=== PATIENT | male | born 1950 | race Caucasian/White ===

== ENCOUNTER → 2023-07-14 10:22 | Outpatient (BNVA) | payer MEDICARE, MEDICAID, SELFPAY | PROVIDERS: Family Provider Physician Assistant Medical; PCP Physician Assistant Medical; Visit Provider Internal Medicine Cardiovascular Disease | DX: I25.10 Atherosclerotic heart disease of native coronary artery without angina pectoris (principal); Z95.1 Presence of aortocoronary bypass graft; E78.2 Mixed hyperlipidemia; Z95.820 Peripheral vascular angioplasty status with implants and grafts; Z87.898 Personal history of other specified conditions | CPT/HCPCS: 99203 ==

== ENCOUNTER 2023-07-22 09:14 | Outpatient (CLI) | payer MEDICARE, MEDICAID, SELFPAY ==
--- NOTE | 2023-07-22 | ECG_ITS ---
[facility] Test Date: 2023-07-22 Pat Name: Marshal Starks Department: Room: Gender: Male Fringing Machine Operator: Paula NixonYandel : 1950 Requested By: Mahad Slaughter Order Number: [id number] Enrique MD: Ed Lemus M.D. Interpretive Statements NAME OF STUDY: LEXISCAN SESTAMIBI STRESS TEST INDICATION: [CAD, CABG, Fatigue] Procedure: At the baseline, the blood pressure was 143/93 mmHg with a heart rate of 70 bpm. The electrocardiogram showed normal sinus rhythm, normal axis with normal ST and T's. The Lexiscan was infused over a period of 20 seconds. A total of 0.4 mg of Lexiscan was infused. The stress phase was continued for a total of 5 minutes. Heart rate was at the end of stress phase was 90 bpm and a blood pressure of 159/82 mmHg. The EKG at the peak infusion revealed normal sinus rhythm with no significant ST-T wave changes. Sestamibi was injected 20 seconds after the Lexiscan infusion. Blood pressure at the end of recovery phase was 152/86 mmHg with a heart rate of 87bpm. Conclusion: 1. Normal EKG response to Lexiscan infusion 2. No Lexiscan induced chest pain or cardiac arrhythmia. 3. Normal blood pressure and heart rate response. 4. Sestamibi/sestamibi perfusion scan pending; see separate report. Electronically Signed On 08-10-2023 9:00:58 CDT by Ed eLmus M.D. [id number]
[2023-07-22 09:32] VITALS: BMI 26.9
--- NOTE | 2023-07-22 09:33 | NMCV_ITS ---
NM sarah perf SPECT r/s* [id number] Raudel Marshal Age: 73 Gender: M : 1950 Exam Date: 07/22/2023 10:13 Ordering Phys: Mahad Slaughter MD ([email or web address]) Technologist: ELHAM Alcaraz Exam Location: [facility] Indications: ASCENDING AORTIC GRAFT STRESS TEST Please see separate stress test report in [facility] for full findings IMAGE PROTOCOL Rest/Stress 1 Lexiscan Day Radiopharmaceutical Dose (mCi) Administration Site Administered by Rest: Tc-99m 11.0 IV ELHAM Carter Sestamibi Stress:Tc-99m 32.6 IV ELHAM Carter Sestamibi Rest: 22-Jul-2023 60 Discovery 630 Stress: 22-Jul-2023 30 Discovery 630 0.4mg Lexiscan. Images obtained in supine and prone position. SPECT RESULTS Technical Quality: Excellent Raw Data Analysis: Normal Image Corrections: No attenuation or motion correction applied Summed Stress Score: 0 Summed Rest Score: 0 Summed Difference Score: 0 PERFUSION FINDINGS SPECT images demonstrate homogeneous tracer distribution throughout the myocardium. FUNCTIONAL RESULTS (calculated via Gated SPECT) Stress Image LV EF (%): 88 Stress EDV (mL):65 TID: 0.92 Stress ESV (mL):8 FUNCTIONAL FINDINGS: There is normal left ventricular systolic function. IMPRESSIONS 1. Normal myocardial perfusion imaging with no evidence of ischemia 2. LV systolic function is normal Ed Lemus MD (Electronically Signed) Final Date: 22 Jul 2023 18:06 S
[2023-07-22] MEDS: regadenoson 0.4 Mg/5 ml Syringe 0.400000000000000022 MG IVP (10:57)
[2023-07-22 11:01] VITALS: BP 152/86; PULSE 87
== END 2023-07-22 09:15 | disposition home or self-care (01) ==
LOC: CDL 09:15
PROVIDERS: PCP Nurse Practitioner Family; Visit Provider Internal Medicine Cardiovascular Disease
DX: I25.10 Atherosclerotic heart disease of native coronary artery without angina pectoris (principal)
CPT/HCPCS: 36415; 78452; 93017; 96374; A9500; J2785

== ENCOUNTER → 2023-07-30 10:20 | Outpatient (BNVA) | payer MEDICARE, MEDICAID, SELFPAY | PROVIDERS: PCP Nurse Practitioner Family; Visit Provider Student in an Organized Health Care Education/Training Program | DX: M17.11 Unilateral primary osteoarthritis, right knee | CPT/HCPCS: 20610; 73560; 73565; 99204; J3301 ==

== ENCOUNTER → 2023-10-28 09:09 | Outpatient (BNVA) | payer MEDICARE, MEDICAID, SELFPAY | PROVIDERS: PCP Nurse Practitioner Family; Visit Provider Nurse Practitioner Family | DX: I25.10 Atherosclerotic heart disease of native coronary artery without angina pectoris (principal); Z95.1 Presence of aortocoronary bypass graft | CPT/HCPCS: 36415; 81003; 81015; 82652; 84443; 86618; 86666; 86757; 99214 ==

== ENCOUNTER → 2023-11-09 10:55 | Outpatient (BNVA) | payer MEDICARE, MEDICAID, SELFPAY | PROVIDERS: PCP Nurse Practitioner Family; Visit Provider Student in an Organized Health Care Education/Training Program | DX: M17.11 Unilateral primary osteoarthritis, right knee (principal) | CPT/HCPCS: 20610; 99213; J3301 ==

== ENCOUNTER → 2024-02-10 08:10 | Outpatient (BNVA) | payer MEDICARE, MEDICAID, SELFPAY | PROVIDERS: PCP Nurse Practitioner Family; Visit Provider Student in an Organized Health Care Education/Training Program | DX: M17.11 Unilateral primary osteoarthritis, right knee (principal) | CPT/HCPCS: 20610; 99213; J3301 ==

== ENCOUNTER → 2024-05-01 12:51 | Outpatient (BNVA) | payer MEDICARE, MEDICAID, SELFPAY | PROVIDERS: PCP Nurse Practitioner Family; Visit Provider Internal Medicine Cardiovascular Disease | DX: I25.10 Atherosclerotic heart disease of native coronary artery without angina pectoris (principal); Z95.1 Presence of aortocoronary bypass graft; R53.83 Other fatigue; I65.29 Occlusion and stenosis of unspecified carotid artery; Z86.73 Personal history of transient ischemic attack (TIA), and cerebral infarction without residual deficits; Z87.891 Personal history of nicotine dependence | CPT/HCPCS: 99214 ==

== ENCOUNTER → 2024-05-16 08:45 | Outpatient (BNVA) | payer MEDICARE, MEDICAID, SELFPAY | PROVIDERS: PCP Nurse Practitioner Family; Visit Provider Student in an Organized Health Care Education/Training Program | DX: M17.11 Unilateral primary osteoarthritis, right knee (principal) | CPT/HCPCS: 20610; 99213; J3301 ==

== ENCOUNTER → 2024-08-16 09:25 | Outpatient (BNVA) | payer MEDICARE, MEDICAID, SELFPAY | PROVIDERS: PCP Nurse Practitioner Family; Visit Provider Student in an Organized Health Care Education/Training Program | DX: M17.11 Unilateral primary osteoarthritis, right knee (principal) | CPT/HCPCS: 99213 ==

== ENCOUNTER 2024-09-10 23:29 | Emergency (ER) | payer OTHER, SELFPAY ==
[2024-09-10 23:38] VITALS: BP 127/71; PULSE 124; RESP 18; TEMP 37.1; O2SAT 97; BMI 26.6
--- NOTE | 2024-09-10 23:42 | ECG_ITS ---
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 Measurements Intervals [place] Rate: 124 P: 49 MA: 128 QRS: 109 QRSD: 99 T: 53 QT: 290 QTc: 417 Interpretive Statements SINUS TACHYCARDIA RIGHT AXIS DEVIATION [QRS AXIS > 100] Compared to ECG 10/26/2015 12:29:06 Right-axis deviation now present Sinus rhythm no longer present Electronically Signed On 09-12-2024 17:29:11 CDT by Ed Lemus M.D. [id number]
--- NOTE | 2024-09-10 23:52 | XRR_ITS ---
PROCEDURE INFORMATION: Exam: XR Chest Exam date and time: 09/11/2024 12:23 AM Age: 74 years old Clinical indication: Fever and shortness of breath; C/O SOB with fever TECHNIQUE: Imaging protocol: Radiologic exam of the chest. Views: 1 view. COMPARISON: No relevant prior studies available. FINDINGS: Lungs: No large focal consolidation. Pleural spaces: No large pleural effusion. No distinct pneumothorax. Heart/Mediastinum: Cardiomediastinal silhouette is midline and normal in size. Bones/joints: Postsurgical changes of prior median sternotomy. XR/XR chest 1V portable [id number] IMPRESSION: No acute cardiopulmonary findings.
[2024-09-11 00:34] VITALS: BP 122/91; PULSE 124; RESP 16; O2SAT 97
--- NOTE | 2024-09-11 00:34 | ED_ITS ---
HPI - SOB/Dyspnea 2 General: Chief Complaint: Shortness of Breath/Dyspnea Stated Complaint: SOB\Fever Time Seen by Provider: 09/11/24 00:24 History of Present Illness: HPI Narrative: 74-year-old male with history of coronar y disease. He presents with shortness of breath, minimal cough, pain in his mid back, somewhat worse with breathing, and temperature. Symptoms seem to start tonight. His heart rate has been fast. Denies leg swelling. No sputum production. No long car trips or road trips. No history of DVT or PE. Related Data Home Medications ?Medication ?Instructions ?Recorded ?Confirmed esomeprazole magnesium 40 mg mg PO PRN 05/01/24 capsule,delayed release ibuprofen 800 mg tablet 800 mg PO BID PRN 05/01/24 0 08/26/24 Previous Rx's ?Medication ?Instructions ?Recorded prednisone 20 mg tablet 40 mg (2 x 20 mg) PO DAILY # 20 tabs 08/26/24 hydrocodone 5 mg-acetaminophen 325 1 tab PO Q4H PRN pa in 2 days #8 09/11/24 mg tablet tabs Allergies Allergy/AdvReac Type Severity Reaction Status Date / Time azithromycin (From Zithromax) Allergy Mild sick Verified 09/10/24 23:42 [facility] ED 2 PFSH: Medical History ASHD (arteriosclerotic heart disease) Vitamin D deficiency H/O chest pain GERD (gastroesophageal reflux disease) Mixed hyperlipidemia Surgical History S/P angioplasty with stent S/P CABG x 2 Social History Smoking and tobacco/nicotine status: former use of tobacco/nicotine Alcohol intake: never Substance/Drug Use: never Physical Exam 2 Const: COMMON NORMALS: no acute distress GENERAL APPEARANCE: cooperative; not ill appearing and not frail appearing HENMT: COMMON NORMALS: normocephalic, atraumatic and Normal external nose present HEAD & SCALP: normocephalic and atraumatic FACE & SINUS: normal facial exam and face symmetric NOSE: Normal external nose present Eye: COMMON NORMALS: Equal, round and reactive pupils present and EOMs intact bilaterally PUPIL: Yes Equal, round and reactive pupils present Neck/C-Spine: GENERAL: Yes trachea midline Chest: CHEST: Yes Symmetrical chest wall rise Resp: COMMON NORMALS: normal respiratory effort, No retractions, No use of accessory muscles and clear to auscultation bilaterally AUSCULTATION: clear to auscultation bilaterally Cardio: COMMON NORMALS: regular rhythm RATE: tachycardic RHYTHM: regular rhythm GI: COMMON NORMALS: Normal to inspection, nondistended, normoactive bowel sounds present Extremity: COMMON NORMALS: no pedal edema Neuro: WILDER COMA SCALE: document GCS findings Wilder coma scale eye opening: Spontaneous Healy coma scale verbal response: Orientated Healy coma scale motor response: Obey commands Healy coma scale total score: 15 S ENSORY EXAM: Yes extremities (intact) Psych: COMMON NORMALS: speech normal SPEECH: Yes normal speech Skin: COMMON NORMALS: no rashes or lesions noted GENERAL SKIN EXAM: no rashes or lesions noted Course 2 Vital Signs: Vital signs: Vital Signs Temperature 98.8 F 09/10/24 23:38 Pulse Rate 89 09/11/24 03:05 Respiratory Rate 16 09/11/24 03:05 Blood Pressure 113/65 09/11/24 03:05 Pulse Oximetry 92 09/11/24 03:05 Oxygen Delivery Me thod Room Air 09/11/24 03:05 MDM - SOB/Dyspnea Medical Decision Making Tachycardic patient with somewhat pleuritic back/chest pain and minimal cough. Tachycardia is somewhat concerning. CTA of the chest has been ordered. White blood cell count is 13, hemoglobin is 17. He does appear somewhat hemoconcentrated. BUN is 27, creatinine 0.8. Chest x-ray is nonacute. No acute ST-T wave changes on EKG. First troponin is 10. 2-hour troponin is stable. CTA of the chest shows no PE, no aortic dissection, no infiltrates, no acute findings. Gallbladder ultrasound, done because of presence of partially imaged stones on CT chest, reveals 3 gallstones with no significant signs of cholecystitis or choledocholithiasis. His symptoms are improved. His heart rate is below 100. He is encouraged to drink oral liquids. Short course of pain medication for ongoing pain. He was prescribed hydrocodone for shingles a couple weeks ago, tachycardia from withdrawal of pain medication is in the differential. He is encouraged to use pain medication very sparingly because of this and taper off slowly. To return for any problems. Lab Data 09/10/24 00:30 09/10/24 00:30 Labs/Radiology: Radiology Impressions Chest X-Ray 09/10/24 23:52 IMPRESSION: No acute cardiopulmonary findings. Chest CTA 09/11/24 01:24 IMPRESSION: 1. No acute pathologic findings in the chest. 2. Questionable cholelithiasis, partially imaged. Gallbladder Ultrasound 09/11/24 02:35 IMPRESSION: Echogenic gallstones in the dependent gallbladder, measuring up to at least 2.1 cm. No significant gallbladder wall thickening. No pericholecystic fluid. Laboratory Results WBC 13.02 10^3/uL (3.29-11.43) H 09/10/24 00:30 RBC 5.53 10^6/uL (3.85-5.65) 09/10/24 00:30 Hgb 17.40 g/dL (11.27-16.99) H 09/10/24 00:30 Hct 51.4 % (37-53) 09/10/24 00:30 MCV 92.9 fl (82-101) 09/10/24 00:30 MCH 31.5 pg (27-33) 09/10/24 00:30 MCHC 33.9 g/dL (30-55) 09/10/24 00:30 RDW 13.0 % (12.1-15.1) 09/10/24 00:30 Plt Count 179 10^3/cmm (157-399) 09/10/24 00:30 MPV 8.9 fL (7.4-10.4) 09/10/24 00:30 Neut % (Auto) 74.6 % 09/10/24 00:30 Lymph % (Auto) 13.4 % 09/10/24 00:30 Morton % (Auto) 8.3 % 09/10/24 00:30 Eos % (Auto) 2.2 % 09/10/24 00:30 Baso % (Auto) 0.5 % 09/10/24 00:30 Neut # (Auto) 9.73 10^3/uL (1.8-7.7) H 09/10/24 00:30 Lymph # (Auto) 1.7 10^3/uL (0.8-4.8) 09/10/24 00:30 Morton # (Auto) 1.1 10^3/uL (0.2-0.9) H 09/10/24 00:30 Eos # (Auto) 0.3 10^3/uL (0.0-0.8) 09/10/24 00:30 Baso # (Auto) 0.1 10^3/uL (0.0-0.1) 09/10/24 00:30 Nucleated RBC % (auto) 0 % 09/10/24 00: Nucleated RBCs # 0.0 /100WBC 09/10/24 00:30 D-Dimer 0.35 ug/mLFEU (0-0.59) 09/11/24 00:30 Sodium 137 mmol/L (136-145) 09/10/24 00:30 Potassium 4.5 mmol/L (3.5-5.1) 09/10/24 00:30 Chloride 101 mmol/L (98-107) 09/10/24 00: Carbon Dioxide 20 mmol/L (22-29) L 09/10/24 00:30 Anion Gap 20.5 (5-19) H 09/10/24 00:30 BUN 27 mg/dL (8-23) H 09/10/24 00:30 Creatinine 0.8 mg/dL (0.7-1.2) 09/10/24 00:30 GFR Calculation Not Reportable 09/10/24 00:30 Glucose 117 mg/dL (65-115) H 09/10/24 00:30 Calculated Osmolality 290 mOsm/kg (285-295) 09/10/24 00:30 Lactic Acid 2.2 mmol/L (0.5-2.2) 09/10/24 00:30 Lactic Acid (Sepsis) 2.2 mmol/L (0.5-2.2) 09/11/24 03:39 Calcium 9.2 mg/dL (8.5-10.5) 09/10/24 00:30 Total Bilirubin 0.6 mg/dL (0.15-1.2) 09/10/24 00:30 AST 13 U/L (0-40) 09/10/24 00:30 ALT 27 U/L (0-41) 09/10/24 00:30 Alkaline Phosphatase 65 U/L (40-130) 09/10/24 00:30 Troponin T Baseline 10 ng/L (0-15) 09/10/24 00:30 Troponin T 120 Minute 9.81 ng/L (0-15) 09/11/24 02:45 Delta Troponin T -0.19 ABS# (0-10) L 09/11/24 02:45 NT-Pro-B Natriuret Pep 309 pg/mL (0-125) H 09/10/24 00:30 Total Protein 6.6 g/dL (6.6-8.7) 09/10/24 00:30 Albumin 4.2 g/dL (3.5-5.2) 09/10/24 00:30 Globulin 2.4 g/dL (1.3-4.6) 09/10/24 00:30 Urine Color Yellow (Yellow) 09/11/24 04:02 Urine Appearance Clear (CLEAR) 09/11/24 04:02 Urine pH 5.5 (5-7) 09/11/24 04:02 Ur Specific [place] >= 1.099 (1.005-1.030) H 09/11/24 04:02 Urine Protein 1+ (Negative) A 09/11/24 04:02 Urine Glucose (UA) Negative (Normal) 09/11/24 04:02 Urine Ketones Negative (Negative) 09/11/24 04:02 Urine Blood Negative (Negative) 09/11/24 04:02 Urine Nitrate Negative (Negative) 09/11/24 04:02 Urine Bilirubin Negative (Negative) 09/11/24 04:02 Urine Urobilinogen 1.0 mg/dL (Negative) 09/11/24 04:02 Ur Leukocyte Esterase Negative (Negative) 09/11/24 04:02 Urine RBC 5-10 /hpf (0-2) H 09/11/24 04:02 Urine WBC 0-4 /hpf (0-5) H 09/11/24 04:02 Ur Squamous Epith Cells 0-4 /hpf (0-5) H 09/11/24 04:02 Amorphous Sediment Not Reportable 09/11/24 04:02 Urine Bacteria None /hpf (NONE) 09/11/24 04:02 Hyaline Casts 0-4 /lpf H 09/11/24 04:02 All radiology interpretation(s) finalized by discharge Discharge Plan Discharge Patient Disposition: Home Clinical Impression: Acute thoracic back pain Condition: Stable Prescriptions: Continued hydrocodone-acetaminophen 5-325 mg tablet 1 tab PO Q4H PRN (Reason: pain) 2 Days Qty: 8 0RF No Action esomeprazole magnesium 40 mg capsule,delayed release(DR/EC) PO PRN prednisone 20 mg tablet 40 mg PO DAILY Qty: 20 0RF Rx Instructions: 40mg (2 tabs) poqd for 4d then, 30mg (1.5tabs) poqd for 4d, 20mg (1 tab) poqd for 4d, then 10mg (0.5 tab) poqd for 4d ibuprofen 800 mg tablet 800 mg PO BID PRN Discharge Orders: Discharge ED (Routine); Ordered 09/11/24 Ordered By: Max Mckinley Referrals: Shilpa Macedo FNP [Primary Care Provider, [facility]] - 1-3 days Patient Instructions: Back Pain (ED), Opioid Safety, Pain Management Activity Restrictions/Additional Instructions: Use pain medication sparingly for this. Some of the increased heart rate you are experiencing can be worsened by withdrawing from pain medication. You may take ibuprofen instead of the medication prescribed. Return for fever, vomiting, development of chest pain or shortness of breath, any other concerning symptoms. Stay out of the heat for the next 48 hours. Drink plenty of clear fluids, especially for the next 48 hours. Call your doctor later this morning for an outpatient follow-up. 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
[2024-09-11 00:46] LABS: Basophils # 0.1 10^3/uL (0.0-0.1); Basophils % 0.5 %; Eosinophils # 0.3 10^3/uL (0.0-0.8); Eosinophils % 2.2 %; Hematocrit 51.4 % (37-53); Lymphocytes # 1.7 10^3/uL (0.8-4.8); Lymphocytes % 13.4 %; Mean Corpuscular HGB Conc 33.9 g/dL (30-55); Mean Corpuscular Hemoglobin 31.5 pg (27-33); Mean Corpuscular Volume 92.9 fl (82-101); Mean Platelet Volume 8.9 fL (7.4-10.4); Monocytes # 1.1 10^3/uL (0.2-0.9); Monocytes % 8.3 %; Neutrophils # 9.73 10^3/uL (1.8-7.7); Neutrophils % 74.6 %; Nucleated Red Blood Cells % 0 %; Platelet Count 179 10^3/cmm (157-399); Red Blood Count 5.53 10^6/uL (3.85-5.65); White Blood Count 13.02 10^3/uL (3.29-11.43)
[2024-09-11 01:02] LABS: D Dimer 0.35 ug/mLFEU (0-0.59)
[2024-09-11 01:05] LABS: Troponin(5th) Baseline 10 ng/L (0-15)
[2024-09-11 01:06] LABS: Lactic Sepsis W/Reflex 2.2 mmol/L (0.5-2.2)
[2024-09-11 01:16] LABS: Alanine Aminotransferase 27 U/L (0-41); Albumin Level 4.2 g/dL (3.5-5.2); Alkaline Phosphatase 65 U/L (40-130); Aspartate Amino Transferase 13 U/L (0-40); Blood Urea Nitrogen 27 mg/dL (8-23); Calcium 9.2 mg/dL (8.5-10.5); Carbon Dioxide 20 mmol/L (22-29); Chloride 101 mmol/L (98-107); Creatinine Clr Calc Pharmacy 88.6347; Globulin 2.4 g/dL (1.3-4.6); Glucose 117 mg/dL (65-115); NT Pro B Type Natriuretic Pept 309 pg/mL (0-125); Osmolality Calculated 290 mOsm/kg (285-295); Sodium 137 mmol/L (136-145); Total Bilirubin 0.6 mg/dL (0.15-1.2); Total Protein 6.6 g/dL (6.6-8.7)
[2024-09-11 01:18] LABS: Anion Gap 20.5 (5-19); Potassium 4.5 mmol/L (3.5-5.1)
--- NOTE | 2024-09-11 01:24 | CTR_ITS ---
PROCEDURE INFORMATION: Exam: CTA Chest With Contrast Exam date and time: 09/11/2024 2:01 AM Age: 74 years old Clinical indication: Shortness of breath; Radiating; Prior surgery; Surgery date: 6+ months; Surgery type: Cabg. Coronary stent; Chest and upper back pain with SOB. ; Additional info: Chest pain back pain TECHNIQUE: Imaging protocol: Computed tomographic angiography of the chest with contrast. Exam focused on the arteries. 3D rendering (Not supervised by radiologist): MIP and/or 3D reconstructed images were created by the technologist. Radiation optimization: All CT scans at this facility use at least one of these dose optimization techniques: automated exposure control; mA and/or kV adjustment per patient size (includes targeted exams where dose is matched to clinical indication); or iterative reconstruction. Contrast material: OMNI 350; Contrast volume: 61 ml; Contrast route: INTRAVENOUS (IV); COMPARISON: CR (CHEST, ) 09/11/2024 12:23 AM RADIATION DOSE METRICS: Total DLP (mGy-cm): 324.08 FINDINGS: Pulmonary arteries: No evidence of pulmonary artery emboli. Aorta: Mild scattered calcific atheromatous disease of the thoracic aorta. Thyroid: Thyroid is normal. Lungs: Minimal compressive atelectasis. No focal consolidation. Pleural spaces: No pleural effusion. No pneumothorax. Heart: Heart is normal in size. No pericardial effusion. Lymph nodes: No distinct pathologically enlarged lymphadenopathy. Gallbladder and biliary ducts: Questionable cholelithiasis, partially imaged. Bones/joints: Postsurgical changes of prior median sternotomy. No acute osseous findings. Soft tissues: Visualized superficial soft tissues are within normal limits. CT/CT angio chest PE protcl [id number] IMPRESSION: 1. No acute pathologic findings in the chest. 2. Questionable cholelithiasis, partially imaged.
[2024-09-11 01:37] LABS: Reflex Lactate Order REFLEX LACTIC ORDERD
[2024-09-11] MEDS: metoprolol tartrate 1 mg/1 mL SDV 5 mL 2.5 MG IVP (01:46)
[2024-09-11] MEDS: morphine 4 mg/mL SDV 1 mL IVP (01:52)
[2024-09-11] MEDS: ketorolac 30 mg/mL INJ 15 MG IVP (01:52)
[2024-09-11] MEDS: ondansetron 2 mg/ML SDV 2 mL 4 MG IVP (01:52)
--- NOTE | 2024-09-11 01:53 | ECG_ITS ---
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 Measurements Intervals [place] Rate: 88 P: 26 [place]: 139 QRS: 71 QRSD: 86 T: 111 QT: 335 QTc: 406 Interpretive Statements SINUS RHYTHM POSSIBLE LEFT ATRIAL ENLARGEMENT [-0.1mV P-WAVE IN V1/V2] NONSPECIFIC ST & T-WAVE ABNORMALITY Compared to ECG 09/10/2024 23:46:48 T-wave abnormality now present Sinus tachycardia no longer present Right-axis deviation no longer present Electronically Signed On 09-12-2024 17:51:38 CDT by Ed Lemus M.D. [email or web address] [id number]
[2024-09-11 02:00] VITALS: BP 169/95; PULSE 122; RESP 16; O2SAT 94
[2024-09-11] MEDS: iohexol 350 mg/mL 500 mL Btl (per mL) IV (02:02)
--- NOTE | 2024-09-11 02:35 | USR_ITS ---
PROCEDURE INFORMATION: Exam: US Abdomen, Limited; Right Upper Quadrant Exam date and time: 09/11/2024 3:03 AM Age: 74 years old Clinical indication: Abdominal pain; Additional info: Epigastric pain back pain TECHNIQUE: Imaging protocol: Real time ultrasound of the abdomen with image documentation. Limited exam focused on the right upper quadrant. COMPARISON: CT angio chest PE protcl [id number] 09/11/2024 2:01 AM FINDINGS: Liver: Visualized liver is normal in appearance. Gallbladder: Echogenic gallstones in the dependent gallbladder, measuring up to at least 2.1 cm. No significant gallbladder wall thickening. No pericholecystic fluid. Biliary ducts: No evidence of biliary ductal dilation. Pancreas: Pancreas is poorly visualized. Right kidney: Right kidney is normal in appearance. No hydronephrosis. No evidence of renal stones. Aorta: Partially imaged aorta is normal in appearance. US/US gall bladder [id number] IMPRESSION: Echogenic gallstones in the dependent gallbladder, measuring up to at least 2.1 cm. No significant gallbladder wall thickening. No pericholecystic fluid.
[2024-09-11 03:05] VITALS: BP 113/65; PULSE 89; RESP 16; O2SAT 92
[2024-09-11 03:11] LABS: Troponin 5 2HR 9.81 ng/L (0-15)
[2024-09-11 03:30] LABS: Troponin 5 2HR Delta -0.19 ABS# (0-10)
[2024-09-11 04:07] LABS: Bilirubin Urine Negative (Negative); Blood Urine Negative (Negative); Glucose Urine UA Negative (Normal); Ketones Urine Negative (Negative); Leukocyte Esterase Urine Negative (Negative); Nitrate Urine Negative (Negative); Protein Urine 1+ (Negative); Urine Appearance Clear (CLEAR); Urine Color Yellow (Yellow); pH Urine 5.5 (5-7)
[2024-09-11 04:24] LABS: Lactic Acid level (Lactate) 2.2 mmol/L (0.5-2.2)
[2024-09-11 04:33] LABS: Specific Gravity, Urine >= 1.099 (1.005-1.030)
[2024-09-11 04:34] LABS: Add Urine Microscopic? YES; Hyaline Casts Urine 0-4 /lpf; Squamous Epithelial Cell Urine 0-4 /hpf (0-5); UA Slide Review UA Slide Review Perf; WBC Urine 0-4 /hpf (0-5)
[2024-09-11] MEDS: oxyCODONE-APAP 5-325 mg Tablet 2 TAB PO (04:46)
[2024-09-11 04:54] VITALS: BP 112/77; PULSE 93; RESP 16; O2SAT 95
== END 2024-09-11 04:55 | disposition home or self-care (01) ==
PROVIDERS: Emergency Provider Emergency Medicine; PCP Nurse Practitioner Family
DX: M54.6 Pain in thoracic spine (principal); Z87.891 Personal history of nicotine dependence; Z95.1 Presence of aortocoronary bypass graft; E78.2 Mixed hyperlipidemia
CPT/HCPCS: 36415; 71045; 71275; 76705; 80053; 81001; 83605; 83880; 84484; 85025; 85378; 87040; 93005; 96374; 96375; 99285; J1885; J2270; J2405; J3490; J9999

== ENCOUNTER 2024-09-15 22:15 | Emergency (ER) | payer OTHER, SELFPAY ==
--- OUTSIDE RECORDS SUMMARY | 2024-09-13 15:40 | XMS_ITS | Encounter Summary ---
Author Organization [facility] Address 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 Hairspring Studder Name Role Phone Laquita Lerner MD Primary Care Provider Reason for Visit * Reason Comments ER Follow Up Anxiety Encounter Details Date Type Department Care Team (Late st Contact Info) Description 09/13/2024 3:40 PM CDT Office Visit [facility] Medicine [address] [address] Shilpa Macedo FNP [address] [place] [address] Vesicular rash (Primary Dx); Rash and nonspecific skin eruption; Prediabetes Social History Tobacco Use Types Packs/Day Years Used Date Smoking Tobacco: Former Cigarettes Smokeless Tobacco: Former Chew Tobacco Cessation:Counseling Given: No Alcohol Use Standard Drinks/Week Comments No 0 (1 standard drink = 0.6 oz pur e alcohol) Financial Resource Strain Answer Date R ecorded How hard is it for you to pa y for the very basics like food, housing, medical care, and heating? Not hard at all 02/19/2022 Food Insecurity Answer Date Recorded In the past 12 months, have you worried that your food would run out before you had money to buy more? Never true 02/19/2022 In the past 12 months, did y ou run out of food and didn't have money to buy more? Never true 02/19/2022 Transportation Needs Answer Date Record ed In the past 12 months, has l ack of transportation kept you from medical appointments or from getting medications? No 02/19/2022 Lack of Transportation (Non-Medical) Not on file 02/19/2022 Feeling Safe Answer Date Recorded Are you in a relationship wi th someone who hurts you emotionally and/or physically? 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 Gender Identity Not on file Sexual Orientation Not on file documented as of this encounter Last Filed Vital Signs Vital Sign Reading Time Taken Comments Blood Pressure 112/84 09/13/2024 3:42 PM CDT Pulse 119 09/13/2024 3:42 PM CDT Temperature 37.7 C (99.9 F) 09/13/2024 3:42 PM CDT Respiratory Rate 20 09/13/2024 3:42 PM CDT Oxygen Saturation 96% 09/13/2024 3:42 PM CDT Inhaled Oxygen Concentration - - Weight 78.7 kg (173 lb 9.6 oz) 09/13/2024 3:42 P M CDT Height 175.3 cm (5' 9 ) 09/13/2024 3:42 PM CDT Body Mass Index 25.64 09/13/2024 3:42 PM CDT documented in this encounter Plan of Treatment Upcoming Encounters Date Type Department Care Team (Late st Contact Info) Description 09/20/2024 10:00 AM CDT Office Visit [facility] Medicine [place] [address] [place] [phone] Shilpa Macedo FNP [address] [facility] [place] [address] Pending Results Name Type Priority Associated Diagnoses Date /Time TICK-BORNE DISEASE AB PANEL W/REFLEX Lab Routine Vesicular rash Rash and nonspecific skin eruption 09/13/2024 4:40 PM CDT BEN MTN SPOTTED FEVER IGG/IGM Lab Routine Vesicular rash Rash and nonspecific skin eruption 09/13/2024 4:40 PM CDT Scheduled Orders Name Type Priority Associated Diagnoses Orde r Schedule TICK-BORNE DISEASE AB PANEL W/REFLEX Lab Routine Vesicular rash Rash and nonspecific skin eruption Expected: 09/13/2024, Expires: 09/13/2025 BEN MTN SPOTTED FEVER IGG/IGM Lab Routine Vesicular rash Rash and nonspecific skin eruption Expected: 09/13/2024, Expires: 09/13/2025 documented as of this encounter Procedures Procedure Name Priority Date/Time Associated Diagnosis Comments MICROALBUMIN/CREATI NINE RATIO, RANDOM UR Routine 09/13/2024 4:42 PM CDT Prediabetes documented in this encounter Results * MICROALBUMIN/CREATININE RATIO, RANDOM UR (09/13/2024 4:42 PM CDT) CREATININE, URINE 155 20 - 320 mg/dL [facility] ALBUMIN, URINE 1.3 See Note: mg/dL [facility] Comment: Reference Range: Reference Range Not established ALB/CREAT RATIO, URINE 8 <30 mg/g creat [facility] Comment: The ADA defines abnormalities in albumin excretion as follows: Albuminuria Category Result (mg/g creatinine) Normal to Mildly increased <30 Moderately increased 30-299 Severely increased > OR = 300 The ADA recommends that at least two of three specimens collected within a 3-6 month period be abnormal before considering a patient to be within a diagnostic category. Test Performed at: [facility] [address] [place] [address] Jono Funez MD Urine URINE SPECIMEN OBTAINED BY CLEAN CATCH PROCEDURE / Unknown 09/13/2024 4:42 PM CDT 09/15/2024 3:53 AM CDT us Shilpa REECE URINE ORDERABLES Final Result [facility] [phone] [facility] [address] [place] [address] documented in this encounter Visit Diagnoses Diagnosis Vesicular rash- Primary Rash and other nonspecific skin eruption Rash and nonspecific skin eruption Rash and other nonspecific skin eruption Prediabetes Other abnormal glucose documented in this encounter Care Teams Hairspring Studder Relationship Specialty Start Date End Date Laquita Lerner MD [address] [address] PCP - General Family Practice 05/12/23 documented as of this encounter
--- OUTSIDE RECORDS SUMMARY | 2024-09-15 22:21 | XMS_ITS | Clinical Summary ---
Author Organization [facility] [place] Address [address] [place] [address] Care Team Providers Care Database Reporting Consultant Name Role Phone Laquita Lerner MD Primary Care Provider Allergies Active Allergy Reactions Criticality Noted Date Comments Azithromycin Abdominal Pain Low 05/13/2018 Medications esomeprazole (NexIUM) 40 mg Capsule, Delayed Release(E.C.)Ind ications:Gastroe sophageal reflux disease without esophagitis TAKE 1 CAPSULE(40 MG) BY MOUTH DAILY 100 Capsule 5 Active ibuprofen (MOTRIN) 800 mg tabletIndication s:Acute pain of left shoulder Take 1 Tablet (800 mg) by mouth every 6 hours as needed for Pain, Mild. 270 Tablet 2 5 Active HYDROcodone-acet aminophen (NORCO) 5-325 mg tablet Take 1 Tablet by mouth every 4 hours as needed for Pain. 5 Active doxycycline hyclate (VIBRAMYCIN) 100 mg capsuleIndicatio ns:Vesicular rash,Rash and nonspecific skin eruption Take 1 Capsule (100 mg) by mouth 2 times daily for 10 days. 20 Capsule 5 09/24/19 25 Active gabapentin (NEURONTIN) 100 mg capsuleIndicatio ns:Vesicular rash,Rash and nonspecific skin eruption Take 1 Capsule (100 mg) by mouth nightly as needed for Pain or Other (See Comment) (anxiety). 30 Capsule 5 Active predniSONE (DELTASONE) 20 mg tablet Take 2 Tablets (40 mg) by mouth daily for 5 days. 10 Tablet 5 09/10/19 25 Active Problems Problem Noted Date Diagnosed Date Other chest pain 08/24/2024 Prediabetes 02/19/2022 TIFFANIE (generalized anxiety disorder) 09/30/2017 Gastroesophageal reflux disease without esophagi tis 09/30/2017 Atherosclerosis of coronary artery bypass graft 03/12/2016 Resolved Problems Problem Noted Date Diagnosed Date Resolved Date Headache 03/12/2016 09/30/2017 Neck pain 03/12/2016 09/30/2017 Encounters Date Type Department Care Team Description 09/14/2024 Orders Only [address] [address] Provider, Abstract 09/13/2024 3:40 PM CDT Office Visit [address] [phone] Shilpa Macedo FNP Vesicular rash (Primary Dx); Rash and nonspecific skin eruption; Prediabetes 09/12/2024 Telephone [facility] [address] [facility] [address] [place] [phone] Laquita Lerner MD Requesting Sooner Appointment; Information 09/04/2024 External Device Data Initial Department [address] [place] [address] Dr LO: [place] [address] [facility], 09/04/2024 Orders Only [address] [phone] Shilpa Macedo FNP 08/29/2024 External Device Data [facility] Provider, Abstract 08/29/2024 External Device Data [facility] Provider, Abstract 08/29/2024 External Device Data [place] Provider, Abstract 08/24/2024 11:43 AM CDT - 08/24/2024 12:58 PM CDT Emergency [facility] Emergency Medicine [address] [facility] [address] [place] [address] Kevon Steiner MD Other chest pain (Primary Dx) Discharge Disposition: Home or Self Care 08/24/2024 Travel 08/15/2024 External Device Data [place] Provider, Abstract 08/15/2024 External Device Data [facility] Provider, Abstract 08/11/2024 External Device Data Initial Department [address] [facility] [address] LO: [place] [address] [facility] 08/10/2024 External Device Data [facility] Provider, Abstract 08/01/2024 External Device Data [facility] Provider, Abstract 08/01/2024 External Device Data [place] Provider, Abstract 07/25/2024 External Device Data [place] Provider, Abstract 07/04/2024 External Device Data [place] Provider, Abstract 06/20/2024 External Device Data [facility] Provider, Abstract from Last 3 Months Social History Tobacco Use Types Packs/Day Years [...] on file 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 Gender Identity Not on file Sexual Orientation Not on file Last Filed Vital Signs Vital Sign Reading Time Taken Comments Blood Pressure 112/84 09/13/2024 3:42 PM CDT Pulse 119 09/13/2024 3:42 PM CDT Temperature 37.7 C (99.9 F) 09/13/2024 3:42 PM CDT Respiratory Rate 20 09/13/2024 3:42 PM CDT Oxygen Saturation 96% 09/13/2024 3:42 PM CDT Inhaled Oxygen Concentration - - Weight 78.7 kg (173 lb 9.6 oz) 09/13/2024 3:42 PM CDT Height 175.3 cm (5' 9 ) 09/13/2024 3:42 PM CDT Body Mass Index 25.64 09/13/2024 3:42 PM CDT Plan of Treatment Upcoming Encounters Date Type Department Care Team (Late st Contact Info) Description 09/20/2024 10:00 AM CDT Office Visit [facility] Medicine [place] [address] [place] [address] [place] [address] [place] [phone] Shilpa Macedo FNP [address] [facility] [place] [address] Health Maintenance Due Date Last Done Comments FIT/ DNA Q 3 YEARS (AUTO ORDER) 1970 FIT/FOBT Q 1 YEAR (AUTO ORDER) 1970 FLEX SIG/CT COLONOGRAPHY Q 5 YEARS (AUTO ORDER) 1970 DTAP/TDAP/TD VACCINES (1 - Tdap) 07/04/1971 COLORECTAL CANCER SCREENING (AUTO ORDER) 1997 COLORECTAL SCREENING 1997 Colorectal Cancer Screening (AUTO ORDER) 1997 Colorectal Cancer Screening 1997 FIT-DNA Q 3 years 1997 FIT/FOBT Q 1 year 1997 Flex Sig/CT Colonography Q 5 years 1997 PNEUMOCOCCAL VACCINE 50+ YEA RS (1 of 1 - PCV) 2002 ZOSTER VACCINE (1 of 2) 2002 RSV VACCINE (60+ or ) (1 - Risk 60-74 years 1-dose series) 2012 Abdominal Aortic Aneurysm (A AA) Screening 2017 Medicare Advantage ([place]) Preventative Visit/Annual Wellness Visit 03/22/2024 06/16/2023, 07/23/2022, 02/19/2022 INFLUENZA VACCINE Completed 04/06/2024, , 02/19/2022, Additional history exists Procedures Procedure Name Priority Date/Time Associated Diagnosis Comments MICROALBUMIN/CREATININ E RATIO, RANDOM UR Routine 09/13/2024 4:42 PM CDT Prediabetes COMPREHENSIVE METABOLIC PANEL Routine 09/10/2024 10:10 AM CDT EKG 12-LEAD Stat 08/24/2024 1:30 PM CDT XR CHEST PA OR AP 1 VW Stat 12:02 PM CDT TSH Stat 08/24/2024 11:50 AM CDT TROPONIN BASELINE, 5TH GEN Stat 08/24/2024 11:50 AM CDT MAGNESIUM LEVEL Stat 08/24/2024 11:50 AM CDT C-REACTIVE PROTEIN Stat 08/24/2024 11 :50 AM CDT BRAIN NATRIURETIC PEPTIDE, BNP OR PROBNP Stat 08/24/2024 11:50 AM CDT LIPASE Stat 08/24/2024 11:50 AM CDT COMPREHENSIVE METABOLIC PANEL Stat 08/24/2024 11:50 AM CDT SEDIMENTATION RATE Stat 08/24/2024 11 :50 AM CDT CBC WITH DIFFERENTIAL Stat 08/24/2024 11:50 AM CDT from Last 3 Months Results * MICROALBUMIN/CREATININE RATIO, RANDOM UR (09/13/2024 4:42 PM CDT) CREATININE, URINE 155 20 - 320 mg/dL [facility] ALBUMIN, URINE 1.3 See Note: mg/dL [facility] Comment: Reference Range: Reference Range Not established ALB/CREAT RATIO, URINE 8 <30 mg/g creat [facility] Comment: The ADA defines abnormalities in albumin excretion as follows: Albuminuria Category Result (mg/g creatinine) Normal to Mildly increased <30 Moderately increased 30-299 Severely increased > OR = 300 The ADA recommends that at least two of three specimens collected within a 3-6 month period be abnormal before considering a patient to be within a diagnostic category. Test Performed at: [facility] [address] [place] [address] Jono Funez MD Urine URINE SPECIMEN OBTAINED BY CLEAN CATCH PROCEDURE / Unknown 09/13/2024 4:42 PM CDT 09/15/2024 3:53 AM CDT Shilpa Macedo HEAD START TEACHER URINE ORDERABLES Final Result [facility] [phone] [facility] [address] [place] [address] * COMPREHENSIVE METABOLIC PANEL (09/10/2024 10:10 AM CDT) Only the most recent of2 resultswithin the time period is included. Blood us Abstract Provider CHEMISTRY ORDERABLES Final Res ult * EKG 12-LEAD (08/24/2024 1:30 PM CDT) Narrative Kevon Steiner MD - 08/24/2024 1:30 PM CDT Kevon Steiner MD 08/25/2024 1:00 PM EKG 12-LEAD Date/Time: 08/24/2024 1:30 PM Performed by: Kevon Steiner MD Authorized by: Kevon Steiner MD ECG interpreted by ED Physician in the absence of a case manager specialist: yes Rate: ECG rate: 93 ECG rate assessment: age appropriate Rhythm: Rhythm Origin: sinus Kenney: QRS axis: Right Intervals: normal QRSTT: QRSTT changes: No us Sherrilluel M Day MD ECG ORDERABLES Final Result * XR CHEST PA OR AP 1 VW (08/24/2024 12:02 PM CDT) Anatomical Region Laterality Modality Chest Computed Radiogr aphy 08/24/2024 12:0 2 PM CDT Impressions 08/24/2024 12:29 PM CDT Impression: No evidence of infiltrates. Narrative 08/24/2024 12:29 PM CDT Exam: XR CHEST PA OR AP 1 VW Date/Time of Exam: 08/24/2024 12:02 PM Reason For Exam: Chest Pain Diagnosis: See Reason for Exam The heart size is normal. The lungs are clear. No pneumothorax is seen. Procedure Note Rodger Dyson MD - 08/24/2024 Exam: XR CHEST PA OR AP 1 VW Date/Time of Exam: 08/24/2024 12:02 PM Reason For Exam: Chest Pain Diagnosis: See Reason for Exam The heart size is normal. The lungs are clear. No pneumothorax is seen. Impression: No evidence of infiltrates. us Kevon Steiner MD DIAGNOSTIC IMAGING ORDERABLES F inal Result * TROPONIN BASELINE, 5TH GEN (08/24/2024 11:50 AM CDT) [facility] TROPONIN T, BASELINE 5TH GEN <6 <=15 ng/L 08/24/2024 12:16 PM CDT [facility] Blood BLOOD SPECIMEN / Unknown Collection / Unknown 08/24/2024 11:50 AM CDT 08/24/2024 11:59 AM CDT Narrative [facility] - 08/24/2024 12:16 PM CDT Troponin Undetectable us Kevon Steiner MD CHEMISTRY ORDERABLES Final Resu lt [facility] CLIA # [id number] [address] [place] [address] * (ABNORMAL) CBC WITH DIFFERENTIAL (08/24/2024 11:50 AM CDT) WBC 9.8(H) 4.2 - 9.1 K/uL 08/24/2024 12:03 PM [facility] RBC 5.41 4.63 - 6.08 M/uL 08/24/2024 12:03 PM [facility] HEMOGLOBIN 17.1 13.7 - 17.5 g/dL 08/24/2024 12:03 PM [facility] HEMATOCRIT 48.8 40.1 - 51.0 % 08/24/2024 12:03 PM [facility] MCV 90.2 79.0 - 92.2 fL 08/24/2024 12:03 PM [facility] MCH 31.6 25.7 - 32.2 pg 08/24/2024 12:03 PM [facility] MCHC 35.0 32.3 - 36.5 g/dL 08/24/2024 12:03 PM [facility] RDW 12.3 11.0 - 14.5 % 08/24/2024 12:03 PM [facility] RDW-STDEV 40.3 36.9 - 56.9 fL 08/24/2024 12:03 PM [facility] PLATELETS 221 130 - 400 K/uL 08/24/2024 12:03 PM [facility] MPV 9.1(L) 10.0 - 14.8 fL 08/24/2024 12:03 PM [facility] NEUTROPHILS 71(H) 34 - 68 % 08/24/2024 12:03 PM [facility] LYMPHOCYTES 15(L) 22 - 53 % 08/24/2024 12:03 PM [facility] MONOCYTES 9 5 - 12 % 08/24/2024 12:03 PM [facility] EOSINOPHILS 1 1 - 7 % 08/24/2024 12:03 PM [facility] BASOPHILS 1 0 - 1 % 08/24/2024 12:03 PM [facility] IMMATURE GRANULOCYTES 3 % 08/24/2024 12:03 PM [facility] NEUTROPHIL ABSOLUTE 6.95(H) 1.78 - 5.38 K/uL 08/24/2024 12:03 PM CDT [facility] LYMPHOCYTE ABSOLUTE 1.49 1.20 - 3.40 K/uL 08/24/2024 12:03 PM CDT [facility] MONOCYTE ABSOLUTE 0.92(H) 0.30 - 0.82 K/uL 08/24/2024 12:03 PM CDT [facility] EOSINOPHIL ABSOLUTE 0.10 0.04 - 0.54 K/uL 08/24/2024 12:03 PM CDT [facility] BASOPHILS ABSOLUTE 0.07 0.01 - 0.08 K/uL 08/24/2024 12:03 PM CDT [facility] IMMATURE GRANULOCYTES ABSOLUTE 0.30 K/uL 08/24/2024 12:03 PM CDT [facility] Blood BLOOD SPECIMEN / Unknown Collection / Unknown 08/24/2024 11:50 AM CDT 08/24/2024 11:59 AM CDT Kevon Steiner MD HEMATOLOGY ORDERABLES Final Res ult [facility] # [id number] [address] [place] [address] * SEDIMENTATION RATE (08/24/2024 11:50 AM CDT) ESR (SEDIMENTATION RATE) 5 0 - 20 mm/Hr 08/24/2024 12:09 PM CDT [facility] Blood BLOOD SPECIMEN / Unknown Collection / Unknown 08/24/2024 11:50 AM CDT 08/24/2024 11:59 AM CDT Narrative [facility] - 08/24/2024 12:09 PM CDT Tube Lot: #[id number] Exp Date: 12/19/2025 SR 0125-1 EXP. 09/23/24 SR 0125-2 EXP. 09/23/24 us Kevon Steiner MD HEMATOLOGY ORDERABLES Final Res ult Performing Organization Address City/[facility] [address]/ZIP Co de Phone Number [facility] CLIA # [id number] [address] [place] [address] * C-REACTIVE PROTEIN (08/24/2024 11:50 AM CDT) [facility] CRP <3.0 <5.0 mg/L 08/24/2024 12:16 PM CDT [facility] Blood BLOOD SPECIMEN / Unknown Collection / Unknown 08/24/2024 11:50 AM CDT 08/24/2024 11:59 AM CDT us Kevon Steiner MD CHEMISTRY ORDERABLES Final Resu lt Performing Organization Address [facility] [address]/[facility] Co de Phone Number [facility] CLIA # [id number] [address] [place] [address] * TSH (08/24/2024 11:50 AM CDT) [facility] TSH 1.29 0.27 - 4.20 uIU/mL 08/24/2024 12:22 PM CDT [facility] Blood BLOOD SPECIMEN / Unknown Collection / Unknown 08/24/2024 11:50 AM CDT 08/24/2024 11:59 AM CDT us Kevon Steiner MD CHEMISTRY ORDERABLES Final Resu lt Performing Organization Address [facility] [address]/[facility] Co de Phone Number [facility] # [id number] [address] [place] [address] * BRAIN NATRIURETIC PEPTIDE, BNP OR PROBNP (08/24/2024 11:50 AM CDT) Pathologist [facility] PROBNP, N TERMINAL 87 0 - 125 pg/mL 08/24/2024 12:16 PM CDT [facility] Comment: INTERPRETIVE COMMENT based on diagnosis: Diagnostic NT pro-BNP cutoffs for Heart Failure in the absence of renal failure is suggested for the following ranges <75 years: <125 pg/mL >=75 years: <450 pg/mL Exclusionary rule out cut-point for Acute Decompensated Heart Failure(ADHF) All ages: <300 pg/mL Diagnostic NT pro-BNP cutoffs for Acute Decompensated Heart Failure(ADHF) in the absence of renal failure is suggested for the following ages <50 years: > 450 pg/mL 50-75 years: > 900 pg/mL >75 years: >1800 pg/mL Blood BLOOD SPECIMEN / Unknown Collection / Unknown 08/24/2024 11:50 AM CDT 08/24/2024 11:59 AM CDT Result Stuart Steiner MD CHEMISTRY ORDERABLES Final Resu lt Performing Organization Address City/[facility] [address]/ZIP Co de Phone Number [facility] # [id number] [address] [place] [address] * MAGNESIUM LEVEL (08/24/2024 11:50 AM CDT) MAGNESIUM 2.3 1.6 - 2.4 mg/dL 08/24/2024 12:16 PM CDT [facility] Blood BLOOD SPECIMEN / Unknown Collection / Unknown 08/24/2024 11:50 AM CDT 08/24/2024 11:59 AM CDT Result Stuart Steiner MD CHEMISTRY ORDERABLES Final Resu lt Performing Organization Address City/[facility] [address]/ZIP Co de Phone Number [facility] CLIA # [id number] [address] [place] [address] * LIPASE (08/24/2024 11:50 AM CDT) LIPASE 40 13 - 60 U/L 08/24/2024 12:16 PM CDT [facility] Blood BLOOD SPECIMEN / Unknown Collection / Unknown 08/24/2024 11:50 AM CDT 08/24/2024 11:59 AM CDT Result Stuart Steiner MD CHEMISTRY ORDERABLES Final Resu lt [facility] CLIA # [id number] [address] [address] from Last 3 Months Insurance MEDICAID [facility] DUAL COMPLETE HMO [facility] [id number] Advance Directives For more information, please contact: [phone] * Full Code (Latest Code Status on File) Date Activated Date Inactivated Comments 06/16/2023 9:40 AM 10/04/2023 11:36 PM Care Teams Database Reporting Consultant Relationship Specialty Start Date End Date Laquita Lerner MD [address] [phone] PCP - General Family Practice 05/12/23
--- OUTSIDE RECORDS SUMMARY | 2024-09-15 22:21 | XMS_ITS | Clinical Summary ---
Author Organization [facility] Address [address] [place] [address] Care Team Providers Care Industrial Technology Teacher Name Role Phone Atul Douglas MD Primary Care Provider [phone] Allergies Active Allergy Reactions Criticality Noted Date Comments Azithromycin Abdominal Pain Low 05/13/2018 Medications LORazepam (ATIVAN) 1 mg tabletIndication s:TIFFANIE (generalized anxiety disorder) TAKE 1 TABLET BY MOUTH ONE TIME DAILY NEEDED FOR ANXIETY 30 Tablet 2 9 Active esomeprazole (NexIUM) 40 mg Capsule, Delayed Release(E.C.)Ind ications:Gastroe sophageal reflux disease without esophagitis TAKE 1 CAPSULE BY MOUTH DAILY BEFORE BREAKFAST 90 Capsule 3 0 Active aspirin-acetamin ophen-caffeine (EXCEDRIN EXTRA STRENGTH) 250-250-65 mg Tablet Take 2 Tablets by mouth every 6 hours as needed for Headaches. Active Active Problems Problem Noted Date Diagnosed Date Gastroesophageal reflux disease without esophagi tis 09/30/2017 TIFFANIE (generalized anxiety disorder) 09/30/2017 Atherosclerosis of coronary artery bypass graft 03/12/2016 Resolved Problems Problem Noted Date Diagnosed Date Resolved Date Neck pain 03/12/2016 09/30/2017 Headache 03/12/2016 09/30/2017 Social History Tobacco Use Types Packs/Day Years Used Date Smoking Tobacco: Former Smokeless Tobacco: Former Alcohol Use Standard Drinks/Week Comments No 0 (1 standard drink = 0.6 oz pur e alcohol) Sex and Gender Information Value Date Recorded Sex Assigned at Not on file Legal Sex Male 11:00 AM CDT Gender Identity Not on file Sexual Orientation Not on file Last Filed Vital Signs Vital Sign Reading Time Taken Comments Blood Pressure 118/80 09/04/2020 9:12 AM CDT Pulse 67 09/04/2020 9:12 AM CDT Temperature 35.9 C (96.6 F) 09/04/2020 9:12 AM CDT Respiratory Rate 17 09/04/2020 9:12 AM CDT Oxygen Saturation 97% 09/04/2020 9:12 AM CDT Inhaled Oxygen Concentration - - Weight 84.6 kg (186 lb 9.6 oz) 09/04/2020 9:12 A M CDT Height 177.8 cm (5' 10 ) 09/04/2020 9:12 AM CDT Body Mass Index 26.77 09/04/2020 9:12 AM CDT Plan of Treatment Health Maintenance Due Date Last Done Comments FIT/ DNA Q 3 YEARS (AUTO ORDER) 1970 FIT/FOBT Q 1 YEAR (AUTO ORDER) 1970 FLEX SIG/CT COLONOGRAPHY Q 5 YEARS (AUTO ORDER) 1970 DTAP/TDAP/TD VACCINES (1 - Tdap) 07/04/1971 Traditional Medicare (ACO) A nnual Wellness Visit 07/04/1971 COLORECTAL CANCER SCREENING (AUTO ORDER) 1997 [...] - Risk 60-74 years 1-dose series) 2012 INFLUENZA VACCINE (#1) 2023 0, 12/26/2019, 05/13/2018 Insurance MEDICARE PART A AND B [facility] Care Teams Industrial Technology Teacher Relationship Specialty Start Date End Date Atul Douglas MD [address] [phone] PCP - General Family Practice 11/15/17
--- OUTSIDE RECORDS SUMMARY | 2024-09-15 22:21 | XMS_ITS | Encounter Summary ---
Author Organization [facility] Address [address] [place] [address] Care Team Providers Care Thoracic Medicine Specialist Name Role Phone Laquita Lerner MD Primary Care Provider Reason for Visit * Reason Comments Requesting Sooner Appointment Information Encounter Details Date Type Department Care Team (Late st Contact Info) Description 09/12/2024 Telephone [facility] Medicine [address] [phone] Laquita Lerner MD [address] [phone] Requesting Sooner Appointment; Information Social History Tobacco Use Types Packs/Day Years Used Date Smoking Tobacco: Former Cigarettes Smokeless Tobacco: Former Chew Alcohol Use Standard Drinks/Week Comments No 0 [...] on file 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 She said she doesn't feel it is heart related and would like to have him tested for tick born illness. Advised we do have a 3:40 opening today and moved the appointment to that spot. She expressed understanding and said they wouldbe there. Sun Sánchez MA 09/13/2024 9:03 AM * Telephone Encounter - Kayy Stewart - 09/13/2024 7:57 AM CDT Copied from [facility] #[id number]. Topic: Patient or Caregiver Communication Request >> Sep 13, 2024 7:55 AM Kayy Beckham wrote: Patient or Caregiver requesting that a message be sent to Care Team Caller: Reyes Anguiano Patient/Caregiver Callback Number: [phone] Call Notes: The patient's is really wants him to be seen today, 09/13/2024 if at all possible for his hospital follow up. She says he is weak and staggers when he walks. He is on the wait list and I checked for availability today, 09/13/2024 but there was nothing. * Telephone Encounter - Sofy Barnes - 09/12/2024 1:58 PM CDT Copied from [facility] #[id number]. Topic: Reschedule/Cancel Appointment/Late Arrival >> Sep 12, 2024 1:56 PM Sofy Riggs wrote: Caller is requesting to reschedule appointment. Call Notes: wanting in sooner Call was received more than 2 hours before appointment. documented in this encounter Plan of Treatment Upcoming Encounters Date Type Department Care Team (Late st Contact Info) Description 09/20/2024 10:00 AM CDT Office Visit [facility] Medicine [place] [address] [place] [address] [place] [phone] Shilpa Macedo [facility] [address] [place] [phone] documented as of this encounter Visit Diagnoses Not on filedocumented in this encounter Care Teams Thoracic Medicine Specialist Relationship Specialty Start Date End Date Laquita Lerner MD [address] [phone] PCP - General Family Practice 05/12/23 documented as of this encounter
--- OUTSIDE RECORDS SUMMARY | 2024-09-15 22:21 | XMS_ITS | Encounter Summary ---
Author Organization [facility] Address [address] [place] [address] Care Team Providers Care Director Of Pediatric Rehabilitation Name Role Phone Laquita Lerner MD Primary Care Provider [phone] Encounter Details Date Type Department Care Team (Late st Contact Info) Description 11/16/2023 Telephone [facility] Medicine [place] [address] [facility] [address] [place] [phone] Shilpa Macedo FNP [address] [place] [address] Social History Tobacco Use Types Packs/Day Years [...] who hurts you emotionally and/or physically? 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 Rolando Linus, 04/05/2024 9:04 AM HER PRESCHOOL * Telephone Encounter - Rinku Chapin - 11/16/2023 10:55 AM CDT Copied from [facility] #[id number]. Topic: Patient or Caregiver Communication Request >> Nov 16, 2023 10:52 AM Rinku Fuchs wrote: Patient or Caregiver requesting advice Caller: Annmarie - Patient/Caregiver Callback Number: [phone] Call Notes: Marshal needs an aortic Ultra Sound and there is no where close to get it done - What should they do ?? Please call they see Shilpa Macedo documented in this encounter Plan of Treatment Upcoming Encounters Date Type Department Care Team (Late st Contact Info) Description 09/20/2024 10:00 AM CDT Office Visit [facility] Medicine [place] [address] [facility] [address] [place] [address] [place] [phone] Shilpa Macedo FNP [address] [place] [place] [phone] documented as of this encounter Visit Diagnoses Not on filedocumented in this encounter Care Teams Director Of Pediatric Rehabilitation Relationship Specialty Start Date End Date Laquita Lerner MD [address] [phone] PCP - General Family Practice 05/12/23 documented as of this encounter
--- OUTSIDE RECORDS SUMMARY | 2024-09-15 22:21 | XMS_ITS | Encounter Summary ---
Author Organization [facility] Address [address] [place] [address] Care Team Providers Care Drain Tiler Name Role Phone Laquita Lerner MD Primary Care Provider [phone] Encounter Details Date Type Department Care Team (Late st Contact Info) Description 09/14/2024 Orders Only [facility] HIM [address] 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 Gender Identity Not on file Sexual Orientation Not on file documented as of this encounter Plan of Treatment Upcoming Encounters Date Type Department Care Team (Late st Contact Info) Description 09/20/2024 10:00 AM CDT Office Visit [facility] [place] [address] [place] [address] [facility] [place] [place] [phone] Shilpa Macedo FNP [address] [facility] [place] [place] [address] documented as of this encounter Procedures Procedure Name Priority Date/Time Associated Diagnosis Comments COMPREHENSIVE METABOLIC PANEL Routine 09/10/2024 10:10 AM CDT documented in this encounter Results * COMPREHENSIVE METABOLIC PANEL (09/10/2024 10:10 AM CDT) Blood us Abstract Provider CHEMISTRY ORDERABLES Final Res ult documented in this encounter Visit Diagnoses Not on filedocumented in this encounter Care Teams Drain Tiler Relationship Specialty Start Date End Date Laquita Lerner MD [address] [place] [phone] PCP - General Family Practice 05/12/23 documented as of this encounter
--- OUTSIDE RECORDS SUMMARY | 2024-09-15 22:21 | XMS_ITS | Encounter Summary ---
Author Organization [facility] Address 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 Gender Identity Not on file Sexual Orientation Not on file documented as of this encounter Plan of Treatment Upcoming Encounters Date Type Department Care Team (Late st Contact Info) Description 09/20/2024 10:00 AM CDT Office Visit [facility] [place] [address] [place] [phone] Shilpa Macedo FNP [address] [place] [phone] documented as of this encounter Visit Diagnoses Not on filedocumented in this encounter Care Teams Data Operations Director Relationship Specialty Start Date End Date Laquita Lerner MD [address] [facility] [address] [place] [phone] PCP - General Family Practice 05/12/23 documented as of this encounter
[2024-09-15 22:35] VITALS: BP 141/82; PULSE 99; RESP 18; TEMP 36.7; O2SAT 99; BMI 26.6
--- NOTE | 2024-09-16 00:59 | ED_ITS ---
HPI - Dizziness 2 General: Chief Complaint: Dizziness Stated Complaint: head wobbly loud wooshing in head Time Seen by Provider: 09/16/24 01:35 History of Present Illness: HPI Narrative: Pt presents with approximately two weeks of intermittent whooshing noise in the head, described as a sensation similar to air being blown up inside the head, accompanied by difficulty focusing eyes, persistent head pain, and episodes of imbalance. Pt reports a low-grade fever, which is typically sweated off at night, and general weakness. There is a rash with blisters on the hand and shoulder, previously diagnosed as shingles, with associated hand stiffness and mild burning/itching. No significant dizziness but reports feeling wobbly and off balance, with a history of near-fall in the bathroom. Pt has experienced some confusion and difficulty maintaining a train of thought. No cough or chest pain. Tick panel was sent but results are pending; pt has been on doxycycline for a few days with some improvement. No history of diabetes. Pt reports prior episodes of eye trouble that improved after chiropractic neck adjustment. Related Data Home Medications ?Medication ?Instructions ?Recorded ?Confirmed esomeprazole magnesium 40 mg mg PO PRN 05/01/24 capsule,delayed release ibuprofen 800 mg tablet 800 mg PO BID PRN 05/01/24 0 08/26/24 Previous Rx's ?Medication ?Instructions ?Recorded prednisone 20 mg tablet 40 mg (2 x 20 mg) PO DAILY # 20 tabs 08/26/24 hydrocodone 5 mg-acetaminophen 325 1 tab PO Q4H PRN pa in 2 days #8 09/11/24 mg tablet tabs meclizine 50 mg tablet 50 mg PO TID PRN dizz #20 ta bs 09/16/24 Allergies Allergy/AdvReac Type Severity Reaction Status Date / Time azithromycin (From Zithromax) Allergy Mild sick Verified 09/10/24 23:42 PFSH ED 2 PFSH: Medical History ASHD (arteriosclerotic heart disease) Vitamin D deficiency H/O chest pain GERD (gastroesophageal reflux disease) Mixed hyperlipidemia Surgical History S/P angioplasty with stent S/P CABG x 2 Social History Smoking and tobacco/nicotine status: former use of tobacco/nicotine Alcohol intake: never Substance/Drug Use: never Physical Exam 2 Const: COMMON NORMALS: no acute distress, patient oriented x3 and alert HENMT: COMMON NORMALS: normocephalic and atraumatic HEAD & SCALP: n ormocephalic and atraumatic OTHER: Mild tenderness with palpation of the right posterior auricular scalp. No obvious deformity or swelling or redness. Eye: COMMON NORMALS: Equal, round and reactive pupils present, EOMs intact bilaterally and no scleral icterus PUPIL: Yes Equal, round and reactive pupils present Resp: COMMON NORMALS: normal respiratory effort and No retractions Cardio: COMMON NORMALS: regular rate, regular rhythm and No murmurs present (Cardio) RATE: regular rate RHYTHM: regular rhythm GI: COMMON NORMALS: Normal to inspection, nondistended, normoactive bowel sounds present, Soft to palpation and non-tender PALPATION: Yes Soft to palpation Neuro: COMMON NORMALS: patient oriented x3 SENSORIUM/ORIENTATION: Yes alert OTHER: Dizziness is reproducible with rapid motion of the head. Skin: COMMON NORMALS: no rashes or lesions noted GENERAL SKIN EXAM: no rashes or lesions noted Course 2 Vital Signs: Vital signs: Vital Signs Temperature 98.0 F 09/15/24 22:35 Pulse Rate 93 09/16/24 05:40 Respiratory Rate 18 09/15/24 22:35 Blood Pressure 130/88 09/16/24 05:40 Pulse Oximetry 98 09/16/24 05:40 [facility] - Dizziness Medical Decision Making In summary, patient is a generally well-appearing 74-year-old male from home seen for vertiginous symptoms. After receiving meclizine, vertigo is much better. CTA of the head and neck were performed and did not show evidence of vertebral dissection or cerebellar infarct. He will be discharged in stable and improved condition with a short course of meclizine and follow-up primary care as needed. Lab Data 09/16/24 01:21 09/16/24 01:21 Radiology Impressions Head/Neck CTA 09/16/24 02:37 IMPRESSION: 1. No large vessel occlusion. 2. Focal high-grade stenosis of greater than 80% of the right BRAKE RELINER at the junction of P1 and P2 segments, but with excellent perfusion distal to this. IMPRESSION: 1. Qnor-rj-ykifktah proximal right ICA stenosis. 2. Mild stenosis of the mid left CCA and proximal ICA. REFERENCES: NASCET CRITERIA. The degree of stenosis in the cervical segment of the internal carotid artery is based on NASCET criteria. Normal is no stenosis. Mild is less than 50% stenosis. Moderate is 50-69% stenosis. Severe is 70% to 99% stenosis. Total occlusion is no detectable patent lumen. ADDENDUM: 09/16/24 0331 THIS REPORT CONTAINS FINDINGS THAT MAY BE CRITICAL TO PATIENT CARE. The findings were verbally communicated via telephone conference with ATUL WAKEFIELD at 3:29 AM CDT on 09/16/2024. The findings were acknowledged and understood. Laboratory Results WBC 8.52 10^3/uL (3.29-11.43) 09/16/24 01:21 RBC 5.31 10^6/uL (3.85-5.65) 09/16/24 01:21 Hgb 16.70 g/dL (11.27-16.99) 09/16/24 01:21 Hct 48.8 % (37-53) 09/16/24 01:21 MCV 91.9 fl (82-101) 09/16/24 01:21 MCH 31.5 pg (27-33) 09/16/24 01:21 MCHC 34.2 g/dL (30-55) 09/16/24 01:21 RDW 12.6 % (12.1-15.1) 09/16/24 01:21 Plt Count 184 10^3/cmm (157-399) 09/16/24 01:21 MPV 8.8 fL (7.4-10.4) 09/16/24 01:21 Neut % (Auto) 55.0 % 09/16/24 01:21 Lymph % (Auto) 30.9 % 09/16/24 01:21 [place] % (Auto) 10.1 % 09/16/24 01:21 Eos % (Auto) 2.6 % 09/16/24 01:21 Baso % (Auto) 0.9 % 09/16/24 01:21 Neut # (Auto) 4.69 10^3/uL (1.8-7.7) 09/16/24 01:21 Lymph # (Auto) 2.6 10^3/uL (0.8-4.8) 09/16/24 01:21 [place] # (Auto) 0.9 10^3/uL (0.2-0.9) 09/16/24 01:21 Eos # (Auto) 0.2 10^3/uL (0.0-0.8) 09/16/24 01:21 Baso # (Auto) 0.1 10^3/uL (0.0-0.1) 09/16/24 01:21 Nucleated RBC % (auto) 0 % 09/16/24 01:21 Nucleated RBCs # 0.0 /100WBC 09/16/24 01:21 Sodium 135 mmol/L (136-145) L 09/16/24 01:21 Potassium 4.7 mmol/L (3.5-5.1) 09/16/24 01:21 Chloride 99 mmol/L (98-107) 09/16/24 01:21 Carbon Dioxide 22 mmol/L (22-29) 09/16/24 01:21 Anion Gap 18.7 (5-19) 09/16/24 01:21 BUN 27 mg/dL (8-23) H 09/16/24 01:21 Creatinine 1.0 mg/dL (0.7-1.2) 09/16/24 01:21 GFR Calculation Not Reportable 09/16/24 01:21 Glucose 120 mg/dL (65-115) H 09/16/24 01:21 Calculated Osmolality 286 mOsm/kg (285-295) 09/16/24 01:21 Calcium 9.6 mg/dL (8.5-10.5) 09/16/24 01:21 Total Bilirubin 0.4 mg/dL (0.15-1.2) 09/16/24 01:21 AST 10 U/L (0-40) 09/16/24 01:21 ALT 18 U/L (0-41) 09/16/24 01:21 Alkaline Phosphatase 85 U/L (40-130) 09/16/24 01:21 Total Protein 7.2 g/dL (6.6-8.7) 09/16/24 01:21 Albumin 3.9 g/dL (3.5-5.2) 09/16/24 01:21 Globulin 3.3 g/dL (1.3-4.6) 09/16/24 01:21 All radiology interpretation(s) finalized by discharge Discharge Plan Discharge Patient Disposition: Home Clinical Impression: Benign paroxysmal positional vertigo of right ear Condition: Stable Prescriptions: New meclizine 50 mg tablet 50 mg PO TID PRN (Reason: dizz) Qty: 20 0RF No Action esomeprazole magnesium 40 mg capsule,delayed release(DR/EC) PO PRN prednisone 20 mg tablet 40 mg PO DAILY Qty: 20 0RF Rx Instructions: 40mg (2 tabs) poqd for 4d then, 30mg (1.5tabs) poqd for 4d, 20mg (1 tab) poqd for 4d, then 10mg (0.5 tab) poqd for 4d ibuprofen 800 mg tablet 800 mg PO BID PRN hydrocodone-acetaminophen 5-325 mg tablet 1 tab PO Q4H PRN (Reason: pain) 2 Days Qty: 8 0RF Discharge Orders: Discharge ED (Routine); Ordered 09/16/24 Ordered By: Atul Lambert Referrals: Shilpa Macedo, BOOSTER PUMP OILER [Primary Care Provider, [facility]] Discharge Diet: Advance as tolerated Discharge Activity: Increase activity as tolerated Patient Instructions: Benign Paroxysmal Positional Vertigo (ED), Patient Portal & Mauro Instructions Activity Restrictions/Additional Instructions: CT scan with contrast of the head and neck fortunately did not show evidence of acute stroke, vertebral dissection, or other significant abnormality requiring immediate intervention. Your symptoms are likely most consistent with a viral infection which was causing headache and neck pain and pressure differential in the right ear causing otolith dysfunction and dysmotility which brings on the dizziness. The meclizine you are given helps with that dizziness. Please continue to take ibuprofen or Tylenol for headache and fever. It is safe to take meclizine alongside these medications. Print Language: Puerto Rican Coding Level of Care Code ED External Grinder for Vj Waite
--- NOTE | 2024-09-16 00:59 | ECG_ITS ---
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 Measurements Intervals [place] Rate: 100 P: 32 KS: 138 QRS: 78 QRSD: 89 T: 57 QT: 320 QTc: 413 Interpretive Statements SINUS TACHYCARDIA LEFT ATRIAL ENLARGEMENT [-0.15mV P-WAVE IN V1/V2] Compared to ECG 09/11/2024 03:18:02 Sinus rhythm no longer present T-wave abnormality no longer present Electronically Signed On 09-21-2024 09:18:06 CDT by Ed Lemus M.D. [email or web address] [id number]
[2024-09-16 01:11] VITALS: BP 117/88; BP 136/92; BP 146/90; PULSE 105; PULSE 88; PULSE 98
[2024-09-16 01:26] LABS: Basophils # 0.1 10^3/uL (0.0-0.1); Basophils % 0.9 %; Eosinophils # 0.2 10^3/uL (0.0-0.8); Eosinophils % 2.6 %; Hematocrit 48.8 % (37-53); Lymphocytes # 2.6 10^3/uL (0.8-4.8); Lymphocytes % 30.9 %; Mean Corpuscular HGB Conc 34.2 g/dL (30-55); Mean Corpuscular Hemoglobin 31.5 pg (27-33); Mean Corpuscular Volume 91.9 fl (82-101); Mean Platelet Volume 8.8 fL (7.4-10.4); Monocytes # 0.9 10^3/uL (0.2-0.9); Monocytes % 10.1 %; Neutrophils # 4.69 10^3/uL (1.8-7.7); Nucleated Red Blood Cells % 0 %; Platelet Count 184 10^3/cmm (157-399); Red Blood Count 5.31 10^6/uL (3.85-5.65); Red Cell Distribution Width 12.6 % (12.1-15.1); White Blood Count 8.52 10^3/uL (3.29-11.43)
[2024-09-16 01:41] VITALS: BP 136/92; PULSE 90; O2SAT 96
--- NOTE | 2024-09-16 01:42 | ECG_ITS ---
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 Measurements Intervals [place] Rate: 91 P: 25 ME: 146 QRS: 63 QRSD: 94 T: 66 QT: 342 QTc: 422 Interpretive Statements SINUS RHYTHM LEFT ATRIAL ENLARGEMENT [-0.15mV P-WAVE IN V1/V2] Compared to ECG 09/15/2024 22:52:51 Sinus tachycardia no longer present Electronically Signed On 09-21-2024 09:38:52 CDT by Ed Lemus M.D. [id number] [id number]
[2024-09-16 01:43] LABS: Alanine Aminotransferase 18 U/L (0-41); Albumin Level 3.9 g/dL (3.5-5.2); Alkaline Phosphatase 85 U/L (40-130); Aspartate Amino Transferase 10 U/L (0-40); Blood Urea Nitrogen 27 mg/dL (8-23); Calcium 9.6 mg/dL (8.5-10.5); Carbon Dioxide 22 mmol/L (22-29); Chloride 99 mmol/L (98-107); Globulin 3.3 g/dL (1.3-4.6); Glucose 120 mg/dL (65-115); Osmolality Calculated 286 mOsm/kg (285-295); Sodium 135 mmol/L (136-145); Total Bilirubin 0.4 mg/dL (0.15-1.2); Total Protein 7.2 g/dL (6.6-8.7)
[2024-09-16 01:45] VITALS: BP 136/92; PULSE 90; O2SAT 96
[2024-09-16 01:48] LABS: Anion Gap 18.7 (5-19); Potassium 4.7 mmol/L (3.5-5.1)
[2024-09-16 02:30] VITALS: BP 126/88; PULSE 85; O2SAT 98
--- NOTE | 2024-09-16 02:37 | CTR_ITS ---
PROCEDURE INFORMATION: Exam: CTA Head With Contrast, Arteriography Exam date and time: 09/16/2024 2:50 AM Age: 74 years old Clinical indication: Dizziness and giddiness; Prior surgery; Surgery date: 6+ months; Surgery type: Cabg; C/O dizziness, worsening over the last week. ; Additional info: Dizziness, chiropractor, concern for dissection/cerebellar s TECHNIQUE: Imaging protocol: Computed tomographic angiography of the head with contrast. Exam focused on the arteries. 3D rendering (Not supervised by radiologist): MIP and/or 3D reconstructed images were created by the technologist. Radiation optimization: All CT scans at this facility use at least one of these dose optimization techniques: automated exposure control; mA and/or kV adjustment per patient size (includes targeted exams where dose is matched to clinical indication); or iterative reconstruction. Contrast material: OMNI 350; Contrast volume: 100 ml; Contrast route: INTRAVENOUS (IV); COMPARISON: No relevant prior studies available. RADIATION DOSE METRICS: Total DLP (mGy-cm): 991.95 FINDINGS: ANTERIOR CIRCULATION: Right internal carotid artery: Intracranial segment is patent with no significant stenosis. There is atherosclerotic calcification in the cavernous segments. No aneurysm. Right middle cerebral artery: No occlusion or significant stenosis. No aneurysm. Right anterior cerebral artery: No occlusion or significant stenosis. No aneurysm. Left internal carotid artery: Intracranial segment is patent with no significant stenosis. There is atherosclerotic calcification of the cavernous segments. No aneurysm. Left middle cerebral artery: No occlusion or significant stenosis. No aneurysm. Left anterior cerebral artery: No occlusion or significant stenosis. No aneurysm. POSTERIOR CIRCULATION: Right vertebral artery: No occlusion or significant stenosis. No aneurysm. Left vertebral artery: No occlusion or significant stenosis. No aneurysm. Basilar artery: No occlusion or significant stenosis. No aneurysm. Right posterior cerebral artery: There is short-segment focal stenosis of greater than 80% at the junction of the P1 and P2 segments with remainder of the BULK PALLET BUILDER perfusing normally. No aneurysm. Left posterior cerebral artery: No occlusion or significant stenosis. No aneurysm. Brain: No no acute infarction, hemorrhage, mass, or extra-axial fluid collection is identified. Confluent areas of chronic white matter microangiopathy and mild generalized atrophy. Cerebral ventricles: No ventriculomegaly. Bones/joints: Calvarium appears intact. Soft tissues: Unremarkable. PROCEDURE INFORMATION: Exam: CTA Neck With Contrast Exam date and time: 09/16/2024 2:50 AM Age: 74 years old Clinical indication: Dizziness and giddiness; Prior surgery; Surgery date: 6+ months; Surgery type: Cabg; C/O dizziness, worsening over the last week. ; Additional info: Dizziness, chiropractor, concern for dissection/cerebellar s TECHNIQUE: Imaging protocol: Computed tomographic angiography of the neck with contrast. Exam focused on the cervical segments of the vasculature. 3D rendering (Not supervised by radiologist): MIP and/or 3D reconstructed images were created by the technologist. Radiation optimization: All CT scans at this facility use at least one of these dose optimization techniques: automated exposure control; mA and/or kV adjustment per patient size (includes targeted exams where dose is matched to clinical indication); or iterative reconstruction. Contrast material: OMNI 350; Contrast volume: 100 ml; Contrast route: INTRAVENOUS (IV); COMPARISON: CT angio chest PE protcl [id number] 09/11/2024 2:01 AM RADIATION DOSE METRICS: Total DLP (mGy-cm): 991.95 FINDINGS: Right common carotid artery: No stenosis. No dissection or occlusion. Right internal carotid artery: Atherosclerotic calcification at the origin with [id number]-oeeejnjr (less than 50%) stenosis of the proximal segment. Mid and distal segments widely patent. No dissection or occlusion. Right external carotid artery: Approximately 50% stenosis of the origin. Left common carotid artery: Mild (less than 50%) stenosis of the mid portion of the common carotid artery. No dissection or occlusion. Left internal carotid artery: Mild (less than 25%) stenosis of the proximal segment of the ICA with wide patency of mid and distal cervical segments. No stenosis of the extracranial segment. No dissection or occlusion. Left external carotid artery: No occlusion or stenosis of the origin. Right vertebral artery: No stenosis. No dissection or occlusion. Left vertebral artery: No stenosis. No dissection or occlusion. Soft tissues: Normal. No significant soft tissue swelling. Bones/joints: No acute fracture. CT/CT angio headneck* [id number] IMPRESSION: 1. No large vessel occlusion. 2. Focal high-grade stenosis of greater than 80% of the right BULK PALLET BUILDER at the junction of P1 and P2 segments, but with excellent perfusion distal to this. IMPRESSION: 1. [id number]-bpjffiwg proximal right ICA stenosis. 2. Mild stenosis of the mid left CCA and proximal ICA. REFERENCES: NASCET CRITERIA. The degree of stenosis in the cervical segment of the internal carotid artery is based on NASCET criteria. Normal is no stenosis. Mild is less than 50% stenosis. Moderate is 50-69% stenosis. Severe is 70% to 99% stenosis. Total occlusion is no detectable patent lumen.
[2024-09-16] MEDS: meclizine 25 mg tablet 50 MG PO (02:46)
[2024-09-16] MEDS: iohexol 350 mg/mL 500 mL Btl (per mL) IV (03:01)
[2024-09-16 04:00] VITALS: BP 130/88; PULSE 92; O2SAT 95
[2024-09-16 05:40] VITALS: BP 130/88; PULSE 93; O2SAT 98
== END 2024-09-16 05:00 | disposition home or self-care (01) ==
PROVIDERS: Emergency Provider Student in an Organized Health Care Education/Training Program; PCP Nurse Practitioner Family
DX: H81.11 Benign paroxysmal vertigo, right ear (principal); Z87.891 Personal history of nicotine dependence; E78.2 Mixed hyperlipidemia
CPT/HCPCS: 36415; 70496; 70498; 80053; 85025; 93005; 99285; J8597

== ENCOUNTER 2024-09-19 05:00 | Outpatient (RCR) | payer OTHER, MEDICAID, SELFPAY | END 2024-10-19 23:59 | disposition home or self-care (01) | LOC: WPT 05:00 | PROVIDERS: Visit Provider Nurse Practitioner Family | DX: M62.81 Muscle weakness (generalized) (principal) | CPT/HCPCS: 97110; 97112; 97161; 97530 ==

== ENCOUNTER → 2024-10-04 12:32 | Outpatient (BNVA) | payer OTHER, SELFPAY | PROVIDERS: PCP Nurse Practitioner Family; Visit Provider Internal Medicine Cardiovascular Disease | DX: I25.10 Atherosclerotic heart disease of native coronary artery without angina pectoris (principal); Z95.1 Presence of aortocoronary bypass graft; I65.23 Occlusion and stenosis of bilateral carotid arteries; I10 Essential (primary) hypertension; F41.9 Anxiety disorder, unspecified; Z87.891 Personal history of nicotine dependence | CPT/HCPCS: 99214 ==

== ENCOUNTER → 2024-11-15 10:09 | Outpatient (BNVA) | payer OTHER, SELFPAY | PROVIDERS: PCP Nurse Practitioner Family; Visit Provider Student in an Organized Health Care Education/Training Program | DX: M17.11 Unilateral primary osteoarthritis, right knee (principal) | CPT/HCPCS: 20610; 99213; J3301; J9999 ==

== ENCOUNTER 2024-11-20 06:30 | Outpatient (RCR) | payer OTHER, SELFPAY | END 2024-12-19 23:59 | disposition home or self-care (01) | LOC: WPT 06:30 | PROVIDERS: PCP Nurse Practitioner Family; Visit Provider Nurse Practitioner Family | DX: M62.81 Muscle weakness (generalized) (principal) | CPT/HCPCS: 97110; 97112; 97116; 97164; 97530 ==

== ENCOUNTER 2025-01-17 07:22 | Emergency (ER) | payer OTHER, SELFPAY ==
[2025-01-17] VITALS (7 sets, daily range): BP systolic 128–173; BP diastolic 73–103; PULSE 64–72; RESP 18–22; TEMP 36.7; O2SAT 97–100; BMI 23.6
--- NOTE | 2025-01-17 07:35 | XR_ITS ---
WS: [id number] Exam: XR chest 1V portable [id number] Date/Time of Exam: 01/17/2025 7:36 AM Reason For Exam: chest pain Comparison 09/11/2024. Lungs are clear and fully expanded. Normal cardiomediastinal silhouette. Signs of previous CABG surgery. No pleural effusion. Normal bony structures. XR/XR chest 1V portable [id number] IMPRESSION: 1. No acute cardiopulmonary finding.
--- NOTE | 2025-01-17 07:48 | ECG_ITS ---
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
--- NOTE | 2025-01-17 07:48 | W.ED.CHESTPA ---
HPI - Chest Pain General: Chief Complaint: Chest Pain Stated Complaint: Chest pain Time Seen by Provider: 01/17/25 07:30 History of Present Illness: 74-year-old male presents emergency room complaining of chest pain again around 230 this morning woke him up from sleep he does have a known history of coronary disease previously bypassed subsequently has had stents placed and has had strokes. He currently is on aspirin he is no longer taking clopidogrel. Lexiscan sestamibi stress test on July 2023 was normal. Pain radiates from the center of the chest to the right around to his back he has been very nauseous with it when he first came in the room he was vomiting Associated symptoms: Deny abdominal pain, dyspnea or fever(s) Related Data Home Medications ?Medication ?Instructions ?Recorded ?Confirmed aspirin 81 mg tablet 81 mg PO QPM 10/04/24 01/17/25 atorvastatin 80 mg tablet (Lipitor) 80 mg PO QPM 10/04/24 01/17/25 clopidogrel 75 mg tablet 75 mg PO QPM 10/04/24 01/17/25 famotidine 20 mg tablet 20 mg PO BID 01/17/25 01/17/25 trazodone 50 mg tablet 50 mg PO BEDTIME 01/17/25 01/17/25 Previous Rx's ?Medication ?Instructions ?Recorded isosorbide mononitrate 30 mg 30 mg PO DAILY #30 tabs 01/17/25 tablet,extended release 24 hr pantoprazole 40 mg tablet,delayed 40 mg PO BID 10 days #40 tabs 01/17/25 release Allergies Allergy/AdvReac Type Severity Reaction Status Date / Time azithromycin (From Zithromax) Allergy Mild sick Verified 11/15/24 10:55 Review of Systems Const: Denies: fever(s) or chills Card: Denies: chest pain Resp: Denies: dyspnea GI: Denies: abdominal pain : Denies: dysuria, urinary frequency or urinary urgency Musc: Denies: neck pain or back pain Skin/Breast: Denies: rash PFSH ED PFSH: Medical History ASHD (arteriosclerotic heart disease) Vitamin D deficiency H/O chest pain GERD (gastroesophageal reflux disease) Mixed hyperlipidemia Surgical History S/P angioplasty with stent S/P CABG x 2 Social History Smoking and tobacco/nicotine status: former use of tobacco/nicotine Alcohol intake: never Substance/Drug Use: never Physical Exam Const: GENERAL APPEARANCE: cooperative ORIENTATION/CONSCIOUSNESS: Yes awake, Yes oriented to person, Yes oriented to place and Yes oriented to time HENMT: COMMON NORMALS: normocephalic, atraumatic and hearing grossly normal bilaterally HEAD & SCALP: normocephalic and atraumatic Resp: COMMON NORMALS: normal respiratory effort, No retractions, No use of accessory muscles and clear to auscultation bilaterally AUSCULTATION: clear to auscultation bilaterally Cardio: COMMON NORMALS: regular rate, regular rhythm and No murmurs present (Cardio) RATE: regular rate RHYTHM: regular rhythm GI: COMMON NORMALS: Soft to palpation and No hepatosplenomegaly present AUSCULTATION: Yes normoactive bowel sounds PALPATION: Yes Soft to palpation, No Tenderness to palpation present (GI), No Guarding due to palpation present (GI) and Yes No hepatosplenomegaly present Extremity: COMMON NORMALS: normal to inspection, capillary refill normal, no clubbing, cyanosis or edema, no calf tenderness and no pedal edema Neuro: SENSORIUM/ORIENTATION: Yes oriented to person, Yes oriented to place and Yes oriented to time Skin: COMMON NORMALS: no rashes or lesions noted GENERAL SKIN EXAM: no rashes or lesions noted Course Vital Signs: Vital signs: Vital Signs Temperature 98.1 F 01/17/25 07:28 Pulse Rate 64 01/17/25 13:25 Respiratory Rate 22 H 01/17/25 08:38 Blood Pressure 152/98 01/17/25 13:25 Pulse Oximetry 98 01/17/25 13:25 Oxygen Delivery Me thod Room Air 01/17/25 08:38 MDM - Chest Pain Medical Decision Making Patient has had no further chest pain reviewed findings EKG showed normal sinus rhythm no acute changes cardiac enzymes negative D-dimer negative chest x-ray shows no sign of pneumonia pneumothorax or widening the mediastinum. He does have a lot of reflux issues he has been on famotidine for time we will change him to Protonix. I discussed Dr. Miles is on-call for cardiology and who has seen this patient in the past he does not recommend admission at this time based on his findings feels he can be discharged home does recommend adding isosorbide mononitrate as this will help lower blood pressure as well follow-up with Dr. Miles within the next week. Reviewed findings with patient and his who is at the bedside as well. Medical Records I reviewed the patient's medical records. Lab Data I reviewed the patient's lab results. 01/17/25 07:58 01/17/25 07:58 Radiology Impressions Chest X-Ray 01/17/25 07:35 IMPRESSION: 1. No acute cardiopulmonary finding. Laboratory Results WBC 10.73 10^3/uL (3.29-11.43) 01/17/25 07:58 RBC 5.10 10^6/uL (3.85-5.65) 01/17/25 07:58 Hgb 15.70 g/dL (11.27-16.99) 01/17/25 07:58 Hct 46.4 % (37-53) 01/17/25 07:58 MCV 91.0 fl (82-101) 01/17/25 07:58 MCH 30.8 pg (27-33) 01/17/25 07:58 MCHC 33.8 g/dL (30-55) 01/17/25 07:58 RDW 12.1 % (12.1-15.1) 01/17/25 07:58 Plt Count 223 10^3/cmm (157-399) 01/17/25 07:58 MPV 8.9 fL (7.4-10.4) 01/17/25 07:58 Neut % (Auto) 73.6 % 01/17/25 07:58 Lymph % (Auto) 17.0 % 01/17/25 07:58 [place] % (Auto) 7.7 % 01/17/25 07:58 Eos % (Auto) 0.7 % 01/17/25 07:58 Baso % (Auto) 0.7 % 01/17/25 07:58 Neut # (Auto) 7.89 10^3/uL (1.8-7.7) H 01/17/25 07:58 Lymph # (Auto) 1.8 10^3/uL (0.8-4.8) 01/17/25 07:58 [place] # (Auto) 0.8 10^3/uL (0.2-0.9) 01/17/25 07:58 Eos # (Auto) 0.1 10^3/uL (0.0-0.8) 01/17/25 07:58 Baso # (Auto) 0.1 10^3/uL (0.0-0.1) 01/17/25 07:58 Nucleated RBC % (auto) 0 % 01/17/25 07:58 Nucleated RBCs # 0.0 /100WBC 01/17/25 07:58 D-Dimer <= 0.27 ug/mLFEU (0-0.59) 01/17/25 07:58 Sodium 141 mmol/L (136-145) 01/17/25 07:58 Potassium 4.9 mmol/L (3.5-5.1) 01/17/25 07:58 Chloride 102 mmol/L (98-107) 01/17/25 07:58 Carbon Dioxide 26 mmol/L (22-29) 01/17/25 07:58 Anion Gap 17.9 (5-19) 01/17/25 07:58 BUN 21 mg/dL (8-23) 01/17/25 07:58 Creatinine 0.8 mg/dL (0.7-1.2) 01/17/25 07:58 GFR Calculation Not Reportable 01/17/25 07:58 Glucose 137 mg/dL (65-115) H 01/17/25 07:58 Calculated Osmolality 297 mOsm/kg (285-295) H 01/17/25 07:58 Calcium 10.1 mg/dL (8.5-10.5) 01/17/25 07:58 Total Bilirubin 0.4 mg/dL (0.15-1.2) 01/17/25 07:58 AST 10 U/L (0-40) 01/17/25 07:58 ALT 13 U/L (0-41) 01/17/25 07:58 Alkaline Phosphatase 104 U/L (40-130) 01/17/25 07:58 Troponin T Baseline 8 ng/L (0-15) 01/17/25 07:58 Troponin T 120 Minute 7.57 ng/L (0-15) 01/17/25 10:32 Delta Troponin T -0.43 ABS# (0-10) L 01/17/25 10:32 Total Protein 7.1 g/dL (6.6-8.7) 01/17/25 07:58 Albumin 4.3 g/dL (3.5-5.2) 01/17/25 07:58 Globulin 2.8 g/dL (1.3-4.6) 01/17/25 07:58 All radiology interpretation(s) finalized by discharge EKG Data EKG 1: I personally reviewed and interpreted this EKG as follows: Interpretation: EKG 01/17/2025 7:29 AM normal sinus rhythm no acute ST changes. Rate of 67 VT interval 156 QTc 394 compared EKG 09/16/2024 atrial abnormality now shows sinus rhythm no other acute changes. EKG 2: I personally reviewed and interpreted this EKG as follows: Interpretation: EKG 01/17/2025 11:55 AM sinus bradycardia rate of 51 acute VT interval 161 QTc 392 EKG does not show any significant EKG changes compared to EKG done earlier same day sinus bradycardia now present Discharge Plan Discharge Patient Disposition: Home Clinical Impression: Atypical chest pain, GERD (gastroesophageal reflux disease) Condition: Stable Prescriptions: New pantoprazole 40 mg tablet,delayed release (DR/EC) 40 mg PO BID 10 Days Qty: 40 0RF isosorbide mononitrate 30 mg tablet extended release 24 hr 30 mg PO DAILY Qty: 30 0RF No Action atorvastatin [Lipitor] 80 mg tablet 80 mg PO QPM clopidogrel 75 mg tablet 75 mg PO QPM aspirin 81 mg tablet 81 mg PO QPM trazodone 50 mg tablet 50 mg PO BEDTIME famotidine 20 mg tablet 20 mg PO BID Discharge Orders: Discharge ED (Routine); Ordered 01/17/25 Ordered By: Jesus Hugo Referrals: Shilpa Macedo FNP [Primary Care Provider, Family Practice] Discharge Diet: Usual diet Discharge Activity: Resume usual activity Patient Instructions: Opioid Safety, Pain Management, Patient Portal & Mauro Instructions Activity Restrictions/Additional Instructions: Thank you for choosing [facility] for your healthcare needs today. It is very important that you follow up as instructed or that you return to the Emergency Department should you have concerns or if your condition changes or worsens in any way. Emergency department visits are focused on emergent conditions, in some cases you may require further evaluation on an outpatient basis. You were seen in the emergency room with complaints of epigastric and chest discomfort. Your cardiac enzymes and EKG were normal. A screening test for blood clot was also normal chest x-ray did not show any pneumonia pneumothorax or signs of widening of your mediastinum. Reviewed your case with Dr. Reeves? your creeler. You had a normal stress test in July 2023 at this point he did not feel admission to the hospital is needed. He recommends discharge home we will start you on Isorbid mononitrate 30 mg once daily additionally we will have you stop the famotidine and start pantoprazole 40 mg twice a day for 10 days then 40 mg daily. Follow-up with Dr. Miles in the office in 7 to 10 days. (Please note that included in your discharge packet is information concerning opioid safety and pain management. This information is given to all patients were discharged from the ER regardless of their discharge diagnosis or the medicines they usually take or are prescribed.) Print Language: Upper Sorbian Coding Level of Care Code ED P[employer] for [employer] Heart Score HEART Score Components History: Slightly Suspicous EKG: Normal Age: 65 or more yrs Risk Factors: >/=3 Risk Factors Troponin: Baseline Trop <16 ng/L HEART Score RESULT HEART Score: 4
[2025-01-17] MEDS: ondansetron 2 mg/ML SDV 2 mL 4 MG IVP (08:09)
[2025-01-17] MEDS: nitroglycerin 1 gm/inch oint Pkt 1 INCH TOPICAL (08:10)
[2025-01-17 08:11] LABS: Hematocrit 46.4 % (37-53); Hemoglobin 15.70 g/dL (11.27-16.99); Mean Corpuscular HGB Conc 33.8 g/dL (30-55); Mean Corpuscular Hemoglobin 30.8 pg (27-33); Mean Corpuscular Volume 91.0 fl (82-101); Nucleated Red Blood Cells % 0 %; Platelet Count 223 10^3/cmm (157-399); Red Blood Count 5.10 10^6/uL (3.85-5.65); White Blood Count 10.73 10^3/uL (3.29-11.43)
[2025-01-17] MEDS: lidocaine 2% viscous 15 ML, aluminum-mag hydrox-simethicon 30 ML, sucralfate oral liq 1 GM PO (08:38)
[2025-01-17 08:41] LABS: Alanine Aminotransferase 13 U/L (0-41); Albumin Level 4.3 g/dL (3.5-5.2); Alkaline Phosphatase 104 U/L (40-130); Anion Gap 17.9 (5-19); Aspartate Amino Transferase 10 U/L (0-40); Blood Urea Nitrogen 21 mg/dL (8-23); Calcium 10.1 mg/dL (8.5-10.5); Carbon Dioxide 26 mmol/L (22-29); Chloride 102 mmol/L (98-107); Creatinine Clr Calc Pharmacy 84.3507; Globulin 2.8 g/dL (1.3-4.6); Glucose 137 mg/dL (65-115); Osmolality Calculated 297 mOsm/kg (285-295); Potassium 4.9 mmol/L (3.5-5.1); Sodium 141 mmol/L (136-145); Total Protein 7.1 g/dL (6.6-8.7)
[2025-01-17] MEDS: fentaNYL 50 mcg/mL INJ 2mL IVP (10:26)
[2025-01-17 10:50] LABS: Troponin(5th) Baseline 8 ng/L (0-15)
[2025-01-17 11:00] LABS: Troponin 5 2HR 7.57 ng/L (0-15)
[2025-01-17 11:04] LABS: Troponin 5 2HR Delta -0.43 ABS# (0-10)
--- NOTE | 2025-01-17 11:55 | ECG_ITS ---
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
== END 2025-01-17 13:51 | disposition home or self-care (01) ==
PROVIDERS: Emergency Provider Family Medicine; PCP Nurse Practitioner Family
DX: R07.89 Other chest pain (principal); K21.9 Gastro-esophageal reflux disease without esophagitis; Z79.02 Long term (current) use of antithrombotics/antiplatelets; Z79.82 Long term (current) use of aspirin; Z87.891 Personal history of nicotine dependence; Z95.1 Presence of aortocoronary bypass graft; E78.2 Mixed hyperlipidemia
CPT/HCPCS: 36415; 71045; 80053; 84484; 85025; 85378; 93005; 96374; 96375; 99285; J0780; J2405; J3010; J9999

== ENCOUNTER → 2025-02-21 10:32 | Outpatient (BNVA) | payer MEDICARE, SELFPAY | PROVIDERS: PCP Nurse Practitioner Family; Visit Provider Student in an Organized Health Care Education/Training Program | DX: M17.11 Unilateral primary osteoarthritis, right knee (principal); Z71.89 Other specified counseling | CPT/HCPCS: 20610; 99213; J3301; J9999 ==